=== PATIENT | female | born 1960 | race Caucasian/White ===

== ENCOUNTER → 2018-06-08 12:16 | Outpatient (CLI) | payer BC, SELFPAY ==
[2018-06-12 13:40] LABS: Z- Score (Female) -0.3 SD (-2.0 - +2.0)
== END ==
PROVIDERS: Family Provider Family Medicine; PCP Family Medicine; Visit Provider Nurse Practitioner Family
DX: N95.1 Menopausal and female climacteric states (principal)
CPT/HCPCS: 36415; 84305

== ENCOUNTER → 2018-10-25 15:15 | Outpatient (REF) | payer BC, SELFPAY ==
[2018-10-25 15:45] LABS: Influenza A and B by PCR Rapid Negative (Negative)
== END ==
LOC: LAB 15:15
PROVIDERS: Visit Provider Nurse Practitioner Family
DX: R05 Cough (principal); R50.9 Fever, unspecified
CPT/HCPCS: 87400

== ENCOUNTER → 2018-12-11 15:45 | Outpatient (REF) | payer BC, SELFPAY ==
[2018-12-11 16:16] LABS: Influenza A and B by PCR Rapid Negative (Negative)
== END ==
LOC: LAB 15:45
PROVIDERS: Visit Provider Family Medicine
DX: R50.9 Fever, unspecified (principal)
CPT/HCPCS: 87400

== ENCOUNTER 2019-02-25 11:46 | Emergency (ER) | payer OTHER, SELFPAY ==
[2019-02-25 11:50] VITALS: BP 161/93; PULSE 66; RESP 18; TEMP 36.7; O2SAT 100; BMI 23.0
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
[2019-02-25 13:09] VITALS: BP 152/82; PULSE 66; RESP 16; O2SAT 100
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
== END 2019-02-25 13:40 | disposition home or self-care (01) ==
PROVIDERS: Emergency Provider Emergency Medicine; PCP Family Medicine
DX: S16.1XXA Strain of muscle, fascia and tendon at neck level, initial encounter (principal); G44.209 Tension-type headache, unspecified, not intractable; V43.52XA Car driver injured in collision with other type car in traffic accident, initial encounter
CPT/HCPCS: 99283

== ENCOUNTER → 2019-04-27 09:13 | Outpatient (CLI) | payer BC, SELFPAY ==
--- NOTE | 2019-04-27 | DI.MRI.S_ITS ---
PROCEDURE: MR HEAD/BRAIN WO/W CON INDICATIONS: HEADACHE TECHNIQUE: Noncontrast axial T1 spin echo, axial T2 fast spin echo, sagittal and axial FLAIR, coronal T2 fast spin echo, axial gradient echo, axial diffusion and ADC through the brain. After the administration of contrast, axial and coronal T1 spin echo with fat saturation through the brain. COMPARISON: [facility], MR, BRAIN (PITUITARY) W&WO CONTRAS, 12/24/2011, 8:41. [facility], MR, BRAIN WITHOUT CONTRAST, 12/08/2011, 10:51. [facility], CT, HEAD WITHOUT CONTRAST, 03/18/2013, 11:02. FINDINGS: Image quality: Excellent. CSF spaces: Basal cisterns are patent. No extra-axial fluid collections. Ventricles are normal in size and shape. Brain: No midline shift. No intracranial bleeds or masses. No abnormal intracranial enhancement. There is cerebral volume loss for age. There is periventricular white matter chronic small vessel ischemic change. The brainstem appears normal. Diffusion-weighted images demonstrate no acute ischemic insults. No chronic ischemic insults. Normal intravascular flow voids are present. Skull and face: Calvarial marrow is normal in signal. Orbits appear normal. Sinuses: Sinuses and mastoids appear clear. IMPRESSION: Unremarkable intracranial study, without an imaging explanation found for the patient's presenting history of headache. No findings of acute or subacute infarction can be seen. Dictated by: Denton Orozco M.D. on 04/27/2019 at 9:04 Approved by: Denton Orozco M.D. on 04/27/2019 at 9:06
== END ==
PROVIDERS: PCP Family Medicine; Visit Provider Family Medicine
DX: R51 Headache (principal)
CPT/HCPCS: 70553

== ENCOUNTER → 2019-07-20 06:58 | Outpatient (CLI) | payer BC, SELFPAY ==
--- NOTE | 2019-07-20 | DI.US.S_ITS ---
PROCEDURE: US ABDOMEN COMPLETE INDICATIONS: RIGHT UPPER QUADRANT PAIN TECHNIQUE: Real-time scanning was performed of the abdominal and retroperitoneal organs, with image documentation. COMPARISON: [facility], CT, CHEST/ABD/PEL WITH CONTRAST, 03/29/2015, 11:29. FINDINGS: Liver: Liver is normal in size and homogeneous in echotexture. Gallbladder: No gallstones identified. Normal gallbladder wall. No pericholecystic fluid. Negative sonographic Sheridan sign. Biliary ducts: Intrahepatic bile ducts are non-dilated. Extrahepatic bile duct caliber measures 3.3 mm. Normal is 6-7 mm or less in diameter, or 10 mm or less post-cholecystectomy. Pancreas: Visualized portions of the pancreas are sonographically normal. Spleen: Spleen is normal in size and homogeneous in echotexture. Kidneys: Kidneys are normal in size and echotexture. Right kidney measures 10.4 cm long; left kidney measures 11.1 cm long. No hydronephrosis or nephrolithiasis. No solid masses. Aorta: Visualized aorta is normal in caliber at less than 3 cm. Iliacs: Proximal common iliac arteries are normal in caliber at less than 2.5 cm. IVC: Intrahepatic inferior vena cava is patent. Miscellaneous: No free abdominal fluid. IMPRESSION: No source for right upper quadrant pain identified. Dictated by: Cosme DOBBINS Interpreted: Carlie Salcido MD on 07/20/2019 at 10:57 Approved by: Carlie Salcido M.D. on 07/20/2019 at 14:56
== END ==
PROVIDERS: PCP Family Medicine; Visit Provider Family Medicine
DX: R10.11 Right upper quadrant pain (principal); R11.0 Nausea
CPT/HCPCS: 76700

== ENCOUNTER → 2019-07-30 13:06 | Outpatient (CLI) | payer BC, SELFPAY ==
--- NOTE | 2019-07-30 | DI.NM.S_ITS ---
PROCEDURE: NM HIDA WITH CCK PHARMACEUTICAL: 5.2 mCi Tc-99m mebrofenin IV; 1.2 mcg CCK IV. INDICATIONS: Nausea TECHNIQUE: Following intravenous administration of Tc-99m mebrofenin, sequential anterior abdominal images were obtained. To evaluate the contractile response of the gallbladder in response to Cholecystokinin (CCK), sincalide (0.02 ?g/kg) was administered by slow intravenous infusion approximately 60 minutes after the administration of the radiopharmaceutical. Sequential imaging was continued for 30 minutes after the start of CCK infusion. Gallbladder ejection fraction was calculated. COMPARISON: None. FINDINGS: Biliary scan: There is normal tracer uptake and excretion by the liver. There is normal visualization of the intrahepatic ducts, common bile duct, and gallbladder. There is normal tracer transit into the duodenum. CCK stimulation: There is normal contractile response of the gallbladder to CCK infusion. The calculated gallbladder ejection fraction is 86%; normal values are above 35%. It has been shown that any patient abdominal pain after CCK administration is related to the rate of CCK injection, rather than to any underlying gallbladder disease (Clinical Nuclear Medicine 2012; 37: 63-70. Journal of Nuclear Medicine 2014; 55: 1-9). IMPRESSION: 1. Normal filling of gallbladder. No evidence for acute cholecystitis. 2. Normal contractile response of gallbladder to CCK stimulation. Dictated by: Luis Hatch M.D. on 07/30/2019 at 16:20 Approved by: Luis Hatch M.D. on 07/30/2019 at 16:21
== END ==
PROVIDERS: PCP Family Medicine; Visit Provider Family Medicine
DX: R11.0 Nausea (principal); R10.11 Right upper quadrant pain
CPT/HCPCS: 78227; A9537; J2805

== ENCOUNTER → 2020-02-19 15:48 | Outpatient (CLI) | payer BC, SELFPAY ==
[2020-02-19 17:38] LABS: Thyroid Stimulating Hormone 0.211 uIU/mL (0.47-4.68)
== END ==
PROVIDERS: PCP Family Medicine; Referring Provider Family Medicine; Visit Provider Family Medicine
DX: E03.9 Hypothyroidism, unspecified (principal)
CPT/HCPCS: 36415; 84443

== ENCOUNTER → 2020-04-25 16:10 | Outpatient (CLI) | payer BC, SELFPAY ==
[2020-04-26 15:36] LABS: COVID19 Sendout Not Detected (Not Detected)
== END ==
PROVIDERS: PCP Family Medicine; Visit Provider Physician Assistant
DX: Z11.59 Encounter for screening for other viral diseases (principal); J02.9 Acute pharyngitis, unspecified
CPT/HCPCS: 87070; 87635

== ENCOUNTER → 2020-07-07 10:20 | Outpatient (CLI) | payer BC, SELFPAY ==
[2020-07-07 11:04] LABS: COVID19 -Nasal RAPID Negative (Negative)
== END ==
PROVIDERS: PCP Family Medicine; Visit Provider Physician Assistant
DX: Z11.59 Encounter for screening for other viral diseases (principal)
CPT/HCPCS: 87635

== ENCOUNTER → 2020-07-26 14:46 | Outpatient (CLI) | payer BC, SELFPAY ==
[2020-07-26 16:24] LABS: COVID19 -Nasal RAPID Negative (Negative)
== END ==
PROVIDERS: PCP Family Medicine; Visit Provider Nurse Practitioner
DX: Z11.59 Encounter for screening for other viral diseases (principal)
CPT/HCPCS: 87635

== ENCOUNTER 2020-07-28 14:00 | Day surgery (SDC) | payer BC, SELFPAY ==
--- NOTE | 2020-07-28 | PATH_ITS ---
[facility] Accession Number: [id number] . 01 Material submitted: . sigmoid colon - SIGMOID POLYP 2MM . 02 Diagnosis: Sigmoid Polyp 2 mm: Fragments of hyperplastic polyp. MRV 07/31/2020 1129 Local . 02 Electronically signed: . Floridalma Zhao MD, Pathologist NPI- [id number] . 01 Gross description: . SIGMOID POLYP 2MM: Received in formalin are minute fragment(s) of evans, soft tissue measuring 0.1 x 0.1 x 0.1 cm in aggregate submitted entirely in 1 cassette(s) /QBJ 07/29/2020 0742 Local . 02 Pathologist provided ICD-10: Z12.11, K63.5 . 02 CPT . [id number] Performed at: 01 [facility] [address] [facility], [place], [place] [id number] MD Adam Ledezma MD Phone: [phone] Performed at: [address] [facility] [address] [place], [place] [id number] MD Colleen Barnett MD Phone: [phone]
--- NOTE | 2020-07-28 12:22 | P.HP_ITS ---
History of Present Illness History of Present Illness Date Patient Seen: 07/28/20 Chief complaint: SDC Narrative: 60 Years Old Female seen today for consideration of a screening colonoscopy. Previous colonoscopy 2008, normal. There have been no lower GI symptoms suggesting disease such as change in bowel habits, bleeding, abdominal pain or anemia. There's been no family history of colon cancer or colon polyps. Overall health issues have been stable, including no major cardiac events for at least 6 weeks. Past Medical History: asthma Dilating esophagus, perforated. Was transported to for 10 days. 2013 ACL & MCL tear 2016 Subungual hematoma Abdominal pain, right upper quadrant HYPERLIPIDEMIA ADD HYPOTHYROIDISM Sebaceous cyst, breast, left HEADACHE Osteopenia Postmenopausal hormone replacement therapy INSOMNIA Pyloric stenosis Past Surgical History: Breast augmentation Tonsillectomy and Adenoidectomy appendectomy 03/29/15 Colonoscopy, 2008 Pyloric stenosis Family History: Father: Heart Disease, [place] age 50, Hypertension, Hyperlipidemia Mother: Heart Disease had a bad valve , Hyperlipidemia, Osteoporosis Siblings: four sibling. both boys with lipid problems. Sister had benign brain tumor age 66. Caitlin B2AD Social History: Marital Status: - Moses (1960) - [employer] Defense Manager Children: G2, P2; 1995, 1997 Occupation: At home Education: 1 year college 2-3 drinks on the weekend Patient History Medical History (Updated 07/07/20 @ 10:19 by Aurora Hicks PA-C) Healthy adult URI (upper respiratory infection) Surgical History No pertinent past surgical history Family & Social History Tobacco & Substance use: Smoking Status Never smoker alcohol intake frequency 0-2 drinks per day Substance Use Type does not use Meds Home Medications and Allergies Home Medications Medication Instructions Recorded Confirmed Type levothyroxine [Synthroid] 50 mcg PO QDAY #0 03/18/13 07/28/20 History atorvastatin 10 mg tablet 10 mg PO DAILY 04/25/20 07/28/20 History Allergies Allergy/AdvReac Type Severity Reaction Status Date / Time amoxicillin [AMOXICILLIN] Allergy Intermediate RASH Verified 07/28/20 14:20 erythromycin base Allergy Intermediate Rash Verified 07/28/20 14:20 Review of Systems Review of Systems ROS: Yes All systems reviewed with the patient and are negative except as otherwise documented Exam Narrative Exam Narrative: GENERAL: Alert and oriented, appearing stated age and in no acute distress. HEENT: Head normocephalic/atraumatic. Pupils equal, round, and reactive to light and accomodation. Extraocular muscles intact. Tympanic membranes clear. Nasal mucosa moist, septum midline. Oral mucosa moist, no lesions. Neck soft and supple, no lymphadenopathy. LUNGS: Clear to ausculation bilaterally, no wheezes, rhonchi or rales. CV: Normal S1 and S2 with regular rate and rhythm, no audible murmurs, rubs or gallops. ABDOMEN: Soft, non-tender, non-distended, no organomegaly. Positive bowel sounds. EXTREMITIES: No clubbing, cyanosis, or edema. NEURO: Cranial nerves II through XII grossly intact, no focal deficits. PSYCH: Alert and oriented x 3. SKIN: No concerning lesions. Assessment & Plan Assessment & Plan narrative: 1. Screening for colon cancer Plan for colonoscopy. The nature and character of the procedure as well as anticipated results were discussed. The possibility of not completing the procedure was also discussed. Possible complications including aspiration pneumonia, bleeding, perforation and reaction to medications either for sedation or preparation and missed lesions were discussed. Questions were answered and proceeding to the colonoscopy was elected. Informed consent signed. I sincerely appreciate the referral allowing me to participate in this patient's care. Please contact me with any questions or concerns.
--- NOTE | 2020-07-28 12:24 | PM.OP.ENDO ---
Operative Date/Time/Diagnoses Date of procedure: 07/28/20 Procedure Notes SCOAP/Timeout: 3:37 p.m. Procedure in detail: ENDOSCOPIST: Marietta Buckley MD Sedation RN: Shauna Dumont RN Sedation start time: 3:38 p.m. Sedation end time: 4:03 p.m. PROCEDURE: Colonoscopy with biopsy INDICATIONS: 1. Screening for colon cancer MEDICATION: Levsin 0.125 mg sublingual, incremental doses of Versed and fentanyl until appropriate level sedation achieved. ASA CLASS: 2 CECAL WITHDRAWAL TIME: 11 minutes COMPLICATIONS: None. EXTENT OF PROCEDURE: Cecum. QUALITY OF PREP: Good with portions of liquid stool. PROCEDURE: Prior to insertion of the colonoscope, a digital rectal examination was accomplished with circumferential palpation of the distal rectal mucosa without significant findings being noted. The high-definition pediatric colonoscope was passed into the rectum in the usual fashion and advanced over to the cecum without difficulty. The ileocecal valve, appendiceal stoma, and medial wall all could be inspected and no abnormalities were seen. ASCENDING COLON: As the colonoscope was withdrawn, care was taken to expose and inspect the haustral folds and no abnormalities were seen. HEPATIC FLEXURE: Normal, no polyps, diverticula or other abnormalities. TRANSVERSE COLON: Normal, no polyps, diverticula or other abnormalities. DESCENDING COLON: Normal, no polyps, diverticula or other abnormalities. SIGMOID COLON: 2 mm polyp removed with cold biopsy forceps. Otherwise, normal, no diverticula or other abnormalities. RECTUM: Normal. J maneuver was produced. There was no significant perianal disease. The J maneuver was broken. The remainder of the rectum was inspected and there was no external hemorrhoid disease. The scope was withdrawn. IMPRESSION: 1. Sigmoid polyp x 1, 2 mm, removed with cold biopsy forceps PLAN: 1. Follow-up in clinic status post pathology results. The possibility of a missed lesion including a malignancy has been discussed with the patient previously. Potential alarm symptoms have been discussed and should be reported immediately.
[2020-07-28] MEDS: LACTATED RINGERS 1,000 ML 200 ML IV (14:23)
[2020-07-28] MEDS: HYOSCYAMINE 0.125 MG TABLET PO (14:23)
[2020-07-28 14:29] VITALS: BP 143/80; PULSE 71; RESP 16; TEMP 36.9; O2SAT 99; BMI 23.9
[2020-07-28] MEDS: MIDAZOLAM 5 MG/5 ML VIAL IV (15:47)
[2020-07-28] MEDS: fentaNYL 250 MCG/5 ML INJ IV (15:47)
[2020-07-28 16:08] VITALS: BP 114/66; PULSE 81; RESP 10; TEMP 36.3; O2SAT 97
[2020-07-28 16:13] VITALS: BP 115/72; PULSE 77; RESP 13; O2SAT 97
[2020-07-28 16:19] VITALS: BP 118/69; PULSE 78; RESP 14; O2SAT 97
[2020-07-28 16:23] VITALS: BP 111/73; PULSE 75; RESP 12; O2SAT 97
[2020-07-28 16:34] VITALS: BP 125/86; PULSE 66; RESP 12; O2SAT 97
== END 2020-07-28 17:00 | disposition home or self-care (01) ==
PROVIDERS: PCP Family Medicine; Referring Provider Student in an Organized Health Care Education/Training Program; Visit Provider Student in an Organized Health Care Education/Training Program
PROC: 0DJD8ZZ Inspection of Lower Intestinal Tract, Via Natural or Artificial Opening Endoscopic (ICD-10-PCS; CPT 45378; principal; 2020-07-28 15:15)
DX: Z12.11 Encounter for screening for malignant neoplasm of colon (principal); J45.909 Unspecified asthma, uncomplicated; E78.5 Hyperlipidemia, unspecified; E03.9 Hypothyroidism, unspecified; K63.5 Polyp of colon
CPT/HCPCS: 45380; J2250; J3010

== ENCOUNTER → 2020-08-11 12:20 | Outpatient (CLI) | payer BC, SELFPAY ==
--- NOTE | 2020-08-11 | DI.RAD.S_ITS ---
PROCEDURE: XR CHEST 2V INDICATIONS: COUGH TECHNIQUE: 2 views of the chest were acquired. COMPARISON: [facility], CHEST 2 VIEW, 12/14/2016, 15:59. [facility], CHEST 2 VIEW, 02/19/2013, 10:36. FINDINGS: Surgical changes and devices: None. Lungs and pleura: Lungs are clear. No pleural effusions or pneumothorax. Mediastinum: Mediastinal contours are normal. Heart size is normal. Bones and chest wall: No suspicious bony abnormalities. Soft tissues appear unremarkable. IMPRESSION: Normal for age, source of current cough symptoms is not seen. Dictated by: Jonathan Monet M.D. on 08/11/2020 at 14:24 Approved by: Jonathan Monet M.D. on 08/11/2020 at 14:24
== END ==
PROVIDERS: PCP Family Medicine; Referring Provider Family Medicine; Visit Provider Family Medicine
DX: R05 Cough (principal)
CPT/HCPCS: 71046

== ENCOUNTER → 2021-01-01 10:23 | Outpatient (CLI) | payer BC, SELFPAY ==
--- NOTE | 2021-01-01 10:25 | DI.RAD.S_ITS ---
PROCEDURE: XR CHEST 2V INDICATIONS: COUGH TECHNIQUE: 2 views of the chest were acquired. COMPARISON: [facility], CR, XR CHEST 2V, 08/11/2020, 13:35. FINDINGS: Surgical changes and devices: None. Lungs and pleura: Scattered subsegmental scarring and/or atelectasis. No acute consolidation. No pleural effusions or pneumothorax. Mediastinum: Mediastinal contours are normal. Heart size is normal. Bones and chest wall: No suspicious bony abnormalities. Soft tissues appear unremarkable. IMPRESSION: No acute disease. Dictated by: Haider Fitzgerald M.D. on 01/01/2021 at 13:04 Approved by: Haider Fitzgerald M.D. on 01/01/2021 at 13:08
== END ==
PROVIDERS: PCP Family Medicine; Referring Provider Family Medicine; Visit Provider Family Medicine
DX: R05 Cough (principal)
CPT/HCPCS: 71046

== ENCOUNTER 2022-05-21 10:11 | Emergency (ER) | payer OTHER, SELFPAY ==
[2022-05-21] VITALS (14 sets, daily range): BP systolic 117–170; BP diastolic 57–83; PULSE 66–83; RESP 18–24; TEMP 36.8; O2SAT 96–100; BMI 23.0
--- NOTE | 2022-05-21 10:25 | DI.RAD.S_ITS ---
PROCEDURE: XR CHEST 1V INDICATIONS: chest pain TECHNIQUE: One view of the chest was acquired. COMPARISON: [facility], CR, XR CHEST 2V, 01/01/2021, 10:38. FINDINGS: Surgical changes and devices: None. Lungs and pleura: Lungs are clear. No pleural effusions or pneumothorax. Mediastinum: Mediastinal contours appear normal. Heart size is normal. Bones and chest wall: No suspicious bony lesions. Overlying soft tissues appear unremarkable. IMPRESSION: No acute cardiopulmonary pathology. Dictated by: Rony Duque M.D. on 05/21/2022 at 11:05 Approved by: Rony Duque M.D. on 05/21/2022 at 11:05
[2022-05-21 10:44] LABS: Add Manual Diff / Slide Review NO; Basophils Absolute Auto 0 /uL (0-100); Basophils Percent Auto 0.3 % (0-2); Eosinophils Absolute Auto 100 /uL (0-450); Eosinophils Percent Auto 1.7 % (2-4); Hematocrit 40.2 % (36-46); Hemoglobin 13.5 g/dL (12.0-16.0); Lymphocytes Absolute Auto 1200 /uL (1100-4500); Lymphocytes Percent Auto 15.6 % (25-40); Mean Corpuscular HGB Conc 33.7 % (30-36); Mean Corpuscular Hemoglobin 31.6 PG (26-34); Mean Corpuscular Volume 93.7 fL (80-100); Monocytes Absolute Auto 700 /uL (0-900); Monocytes Percent Auto 8.7 % (3-14); Neutrophils Absolute Auto 5600 /uL (1500-7000); Neutrophils Percent Auto 73.7 % (50-75); Platelet Count 140 X10^3/uL (150-400); Red Blood Cell Count 4.29 X10^6/uL (4.0-5.2); Red Cell Distribution Width 12.3 % (11.6-14.8); White Blood Cell Count 7.6 X10^3/uL (4.5-11.0)
--- NOTE | 2022-05-21 10:51 | ED.CHESTPAIN ---
HPI - Chest Pain General Chief Complaint: Chest Pain Stated Complaint: Chest pain, shoulder pain, SOB, headache pain Time Seen by Provider: 05/21/22 10:40 Source: patient Mode of arrival: Ambulatory Limitations: no limitations History of Present Illness HPI narrative: 62-year-old female here for evaluation of epigastric abdominal pain, shortness of breath with deep inspirations because of the pain and left shoulder discomfort. States the symptoms been going on for the past 24-36 hours. She has had a hiatal hernia and also esophageal rings in the past. Has had an esophageal rupture after an endoscope many years ago. She also has a history of reflux disease. Approximately 1 week ago she started to take her famotidine again because she was having some reflux issues. Those symptoms are now gone. She denies chest discomfort. She states that the pain in her epigastrium is somewhat worse with palpation. She is also having diarrhea. No urinary symptoms. No skin changes. Related Data Home Medications Medication Instructions Recorded Confirmed levothyroxine 50 mcg tablet 50 mcg PO QDAY ##0 03/18/13 07/28/20 (Synthroid) atorvastatin 10 mg tablet (Lipitor) 10 mg PO DAILY 04/25/20 07/28/20 Previous Rx's Medication Instructions Recorded sucralfate 100 mg/mL oral 10 ml PO QACHS #420 mL 05/21/22 suspension (Carafate) Allergies Allergy/AdvReac Type Severity Reaction Status Date / Time amoxicillin [AMOXICILLIN] Allergy Intermediate RASH Verified 07/28/20 14:20 erythromycin base Allergy Intermediate Rash Verified 07/28/20 14:20 Review of Systems Review of Systems ROS Unobtainable: All systems reviewed & are unremarkable except as noted in HPI and below Patient History Medical History Healthy adult URI (upper respiratory infection) Surgical History No pertinent past surgical history Social History household members: spouse Smoking Status: Never smoker alcohol intake: current Smoking Status: Never smoker alcohol intake frequency: a few times a month Alcohol type: wine Substance Use Type: does not use Exam Initial Vital Signs Initial Vital Signs: Vital Signs Temperature 98.3 F 05/21/22 10:20 Pulse Rate 73 05/21/22 10:20 Respiratory Rate 18 05/21/22 10:20 Blood Pressure 135/76 05/21/22 10:20 Pulse Oximetry 100 05/21/22 10:20 Oxygen Delivery Method 05/21/22 10:20 Const General: cooperative, comfortable and well developed Chest Other: Mild discomfort in the epigastric region and left upper quadrant. Resp Effort & Inspection: normal respiratory effort Auscultation: clear to auscultation bilaterally Cardio Rate: regular rate Rhythm: regular rhythm GI Other: Epigastric abdominal tenderness, no Sheridan's sign, no lower abdominal tenderness. Back/Spine/Pelvis Back: normal to inspection and No CVA tenderness Skin General: no rashes or lesions noted Neuro General: patient alert, patient awake and moves all extremities Extrem General: normal to inspection and capillary refill normal Psych Appearance: grossly normal and well kempt Course Orders Ordered: ED Orders 05/21/22 10:25 XR chest 1V Stat EKG-12 Lead Stat 05/21/22 10:36 Complete Blood Count AUTO DIFF Stat Comprehensive Metabolic Panel Stat D Dimer Stat Lipase Stat Magnesium Stat Troponin & CK Cardiac Panel Stat 05/21/22 12:14 CT abdomen pelvis w con Stat 05/21/22 12:40 Troponin I Stat Discontinued Medications Acetaminophen (Acetaminophen Susp 650 Mg/20.3 Ml Udc) 650 mg PO NOW ONE Stop: 05/21/22 11:56 Last Admin: 05/21/22 11:59 Dose: 650 mg Documented By: AMARJIT Ward Hydrox/Mg Hydrox/Simethicone 20 ml/ Lidocaine HCl 15 ml 0 ml PO NOW ONE Stop: 05/21/22 13:45 Last Admin: 05/21/22 14:07 Dose: 35 ml Documented By: NANCY Vital Signs Vital signs: Vital Signs - 8 hr 05/21/22 10:20 05/21/22 10:42 05/21/22 11:00 Temperature 98.3 F Pulse Rate 73 83 71 Respiratory Rate 18 Blood Pressure 135/76 Pulse Oximetry 100 97 97 Oxygen Delivery Method Room Air 05/21/22 11:30 05/21/22 11:39 05/21/22 11:39 Temperature Pulse Rate 68 83 Respiratory Rate 24 22 Blood Pressure 134/75 Pulse Oximetry 97 98 Oxygen Delivery Method 05/21/22 12:00 05/21/22 12:30 05/21/22 12:30 Temperature Pulse Rate 80 66 Respiratory Rate 20 Blood Pressure 129/67 Pulse Oximetry 97 97 Oxygen Delivery Method Room Air Room Air 05/21/22 13:02 05/21/22 13:03 05/21/22 13:03 Temperature Pulse Rate 81 78 Respiratory Rate 23 Blood Pressure 170/83 H Pulse Oximetry 96 96 Oxygen Delivery Method Room Air Room Air 05/21/22 13:30 05/21/22 13:31 05/21/22 13:31 Temperature Pulse Rate 72 73 Respiratory Rate Blood Pressure 142/78 H Pulse Oximetry 98 98 Oxygen Delivery Method Room Air Room Air 05/21/22 14:00 05/21/22 14:00 Temperature Pulse Rate 70 Respiratory Rate Blood Pressure 138/63 Pulse Oximetry 98 Oxygen Delivery Method Room Air MDM - Chest Pain Lab Data Attestation: I reviewed the patient's lab results. Result diagrams: 05/21/22 10:36 05/21/22 10:36 Labs: Lab Results 05/21/22 05/21/22 05/21/22 Range/Units 10:36 10:36 10:36 WBC 7.6 (4.5-11.0) X10^3/uL RBC 4.29 (4.0-5.2) X10^6/uL Hgb 13.5 (12.0-16.0) g/dL Hct 40.2 (36-46) % MCV 93.7 (80-100) fL MCH 31.6 (26-34) PG MCHC 33.7 (30-36) % RDW 12.3 (11.6-14.8) % Plt Count 140 L (150-400) X10^3/uL Neut % (Auto) 73.7 (50-75) % Lymph % (Auto) 15.6 L (25-40) % Rogers % (Auto) 8.7 (3-14) % Eos % (Auto) 1.7 L (2-4) % Baso % (Auto) 0.3 (0-2) % Neut # (Auto) 5600 (5252-5900) /uL Lymph # (Auto) 1200 (4077-0891) /uL Rogers # (Auto) 700 (0-900) /uL Eos # (Auto) 100 (0-450) /uL Baso # (Auto) 0 (0-100) /uL D-Dimer 321 (<500) ng/ml Sodium 139 (137-145) mmol/L Potassium 4.0 (3.4-5.1) mmol/L Chloride 103 (98-107) mmol/L Carbon Dioxide 28 (22-32) mmol/L BUN 14 (7-17) mg/dL Creatinine 0.63 (0.52-1.04) mg/dL Estimated GFR > 60 (>60) mL/min BUN/Creatinine Ratio 22.2 H (6-22) Glucose 93 (80-110) mg/dL Calcium 8.1 L (8.4-10.2) mg/dL Magnesium 2.1 (1.6-2.3) mg/dL Total Bilirubin 0.5 (0.2-1.3) mg/dL AST 39 H (14-36) IU/L ALT 34 (<35) IU/L Alkaline Phosphatase 78 (38-126) U/L Total Creatine Kinase 46 (30-135) U/L CK-MB (CK-2) TNP CK-MB (CK-2) Rel Index TNP Troponin I < 0.012 (0.01-0.034) ng/mL Total Protein 7.5 (6.3-8.2) g/dL Albumin 4.3 (3.5-5.0) g/dL Globulin 3.2 (1.7-4.1) g/dL Albumin/Globulin Ratio 1.3 (1.0-2.8) Lipase 52 (23-300) U/L 05/21/22 Range/Units 12:40 WBC (4.5-11.0) X10^3/uL RBC (4.0-5.2) X10^6/uL Hgb (12.0-16.0) g/dL Hct (36-46) % MCV (80-100) fL MCH (26-34) PG MCHC (30-36) % RDW (11.6-14.8) % Plt Count (150-400) X10^3/uL Neut % (Auto) (50-75) % Lymph % (Auto) (25-40) % Rogers % (Auto) (3-14) % Eos % (Auto) (2-4) % Baso % (Auto) (0-2) % Neut # (Auto) (3340-0880) /uL Lymph # (Auto) (0305-4775) /uL Rogers # (Auto) (0-900) /uL Eos # (Auto) (0-450) /uL Baso # (Auto) (0-100) /uL D-Dimer (<500) ng/ml Sodium (137-145) mmol/L Potassium (3.4-5.1) mmol/L Chloride (98-107) mmol/L Carbon Dioxide (22-32) mmol/L BUN (7-17) mg/dL Creatinine (0.52-1.04) mg/dL Estimated GFR (>60) mL/min BUN/Creatinine Ratio (6-22) Glucose (80-110) mg/dL Calcium (8.4-10.2) mg/dL Magnesium (1.6-2.3) mg/dL Total Bilirubin (0.2-1.3) mg/dL AST (14-36) IU/L ALT (<35) IU/L Alkaline Phosphatase (38-126) U/L Total Creatine Kinase (30-135) U/L CK-MB (CK-2) CK-MB (CK-2) Rel Index Troponin I < 0.012 (0.01-0.034) ng/mL Total Protein (6.3-8.2) g/dL Albumin (3.5-5.0) g/dL Globulin (1.7-4.1) g/dL Albumin/Globulin Ratio (1.0-2.8) Lipase (23-300) U/L Urine Dip Bedside Urine Glucose Negative Bedside Urine Bilirubin - Negative Bedside Urine Ketone - Negative Urine Specific [place] 1.005 Bedside Urine Occult Blood - Negative Bedside Urine pH 8 Bedside Urine Protein - Negative Bedside Urine Nitrite - Negative Bedside Urine Leukocytes - Negative Esterase Imaging Data Chest x-ray: Radiologist's Impression: [address] [address] XRay Report Signed Patient: Judy Tierney MR#: [id number] : 1960 Acct:[id number] Age/Sex: 62 / F Date of Service: 05/21/22 Loc: ED Accession Number: [id number] ?? Procedure: XR chest 1V Ordering Provider: Vimal Mckeon D.O. PROCEDURE:? XR CHEST 1V ? INDICATIONS:? chest pain ? TECHNIQUE:? One view of the chest was acquired.? ? COMPARISON:? [facility], CR, XR CHEST 2V, 01/01/2021, 10:38. ? FINDINGS:? ? Surgical changes and devices:? None.? ? Lungs and pleura:? Lungs are clear.? No pleural effusions or pneumothorax.? ? Mediastinum:? Mediastinal contours appear normal.? Heart size is normal.? ? Bones and chest wall:? No suspicious bony lesions.? Overlying soft tissues appear unremarkable.? ? IMPRESSION:? No acute cardiopulmonary pathology. ? ? Dictated by: Rony Duque M.D. on 05/21/2022 at 11:05 ? ? Approved by: Rony Duque M.D. on 05/21/2022 at 11:05?? CT scan - abdomen/pelvis: Radiologist's Impression: [place] [address] CT Scan Report Signed Patient: Judy Tierney MR#: [id number] : 1960 Acct:[id number] Age/Sex: 62 / F Date of Service: 05/21/22 Loc: ED Accession Number: [id number] ?? Procedure: CT abdomen pelvis w con Ordering Provider: Vimal Mckeon D.O. PROCEDURE:? CT ABDOMEN PELVIS W CON ? INDICATIONS:? epigastric ABD pain history of esophageal stricture/pyloric ? TECHNIQUE:? After the administration of intravenous contrast, axial sections acquired from the lung bases to the pubic symphysis.? Coronal and sagittal reformats were performed.? For radiation dose reduction, the following was used:? automated exposure control, adjustment of mA and/or kV according to patient size.? ? COMPARISON:? CT, CHEST/ABD/PEL WITH CONTRAST, 03/29/2015, 11:29.? US, US ABDOMEN COMPLETE, 07/20/2019, 7:24. ? FINDINGS:? Image quality:? Excellent.? ? Lung bases:? Unremarkable except for posterior left lower lobe costophrenic sulcus mild consolidation in the setting of reduced inspiratory volume. Heart:? No significant findings. ? ABDOMEN: Liver:? Unremarkable.? ? Gallbladder:? Unremarkable.? ? Biliary ducts:? Unremarkable.? ? Pancreas:? Unremarkable.? ? Spleen:? Unremarkable.? ? Adrenal Glands:? Unremarkable.? ? Kidneys and Ureters:? Unremarkable.? ? ? Stomach and Bowel:? Stomach, small bowel loops, and colon are unremarkable.? Peritoneum:? No abnormal intraperitoneal fluid.? No free air.? ? Ventral Wall: ? No hernias.? Abdominal Nodes:? No retroperitoneal or mesenteric adenopathy by size criteria.? Vessels:? Aorta and inferior vena cava are normal in size.? ? PELVIS: Pelvic Organs:? Unremarkable.? ? Bladder:? Unremarkable.? ? Pelvic Nodes: No enlarged lymph nodes.? Miscellaneous: No hernias are seen. ? ? ? Bones:? Unremarkable.? IMPRESSION:? No source of current abdominal pain is found.? No abnormality identified.? Incidental note is made of what appears to be mild posterior left lower lobe atelectasis but it is conceivable that a slight degree of active inflammation could be superimposed in that area.? Please correlate clinically.? ? Dictated by: Jonathan Monet M.D. on 05/21/2022 at 13:17 ? ? Approved by: Jonathan Monet M.D. on 05/21/2022 at 13:20 ECG Data Attestation: I personally reviewed and interpreted this ECG as follows: Interpretation: Sinus rhythm Ventricular rate is 75 Occasional PACs Normal QRS Normal QTC Left axis deviation MDM Narrative Medical decision making narrative: EKG is unremarkable, troponins negative x2, CT scan of the abdomen is unremarkable. Chest x-ray is unremarkable. LFTs bilirubin lipase all negative. No indication of any infection. D-dimer is negative. I suspect that her left shoulder discomfort is referred pain from her epigastric region. She has had issues in the past with GI. Has had history of reflux disease and also hiatal hernia which I suspect is what is present today. Will discharge her home with Carafate. Will have her contact her GI provider for follow-up. She was given return precautions. She expressed understanding and agreement. Discharge Plan Departure Patient Disposition: Home Clinical Impression: Epigastric abdominal pain Instructions: DI for Abdominal Pain-Adult Activity Restrictions/Additional Instructions: I do recommend you continue to take all of your medications. Prescription for a medicine called Carafate/sucralfate was sent to [email or web address]. Please start taking it as directed like we discussed. Contact your primary doctor for a follow-up. Return to the emergency department for any new or worsening symptoms. Prescriptions: New sucralfate [Carafate] 100 mg/mL suspension 10 ml PO QACHS Qty: 420 0RF No Action atorvastatin [Lipitor] 10 mg tablet 10 mg PO DAILY levothyroxine [Synthroid] 50 MCG tablet 50 mcg PO QDAY Qty: 0 Referrals: Minh Leong MD [Primary Care Provider] -
[2022-05-21 10:55] LABS: Alanine Aminotransferase 34 IU/L (<35); Albumin 4.3 g/dL (3.5-5.0); Albumin Globulin Ratio 1.3 (1.0-2.8); Alkaline Phosphatase 78 U/L (38-126); Aspartate Aminotransferase 39 IU/L (14-36); BUN Creatinine Ratio 22.2 (6-22); Bilirubin Total 0.5 mg/dL (0.2-1.3); Blood Urea Nitrogen 14 mg/dL (7-17); Calcium 8.1 mg/dL (8.4-10.2); Carbon Dioxide 28 mmol/L (22-32); Chloride 103 mmol/L (98-107); Creatine Kinase 46 U/L (30-135); Estimated Glomerular Filt Rate > 60 mL/min (>60); Globulin 3.2 g/dL (1.7-4.1); Glucose 93 mg/dL (80-110); HEMOLYSIS 40 (0-50); Lipase 52 U/L (23-300); Magnesium 2.1 mg/dL (1.6-2.3); Sodium 139 mmol/L (137-145); Total Protein 7.5 g/dL (6.3-8.2)
[2022-05-21 11:07] LABS: Troponin I < 0.012 ng/mL (0.01-0.034)
[2022-05-21] MEDS: ACETAMINOPHEN SUSP 650 MG/20.3 ML UDC PO (11:59)
--- NOTE | 2022-05-21 12:14 | DI.CT.S_ITS ---
PROCEDURE: CT ABDOMEN PELVIS W CON INDICATIONS: epigastric ABD pain history of esophageal stricture/pyloric TECHNIQUE: After the administration of intravenous contrast, axial sections acquired from the lung bases to the pubic symphysis. Coronal and sagittal reformats were performed. For radiation dose reduction, the following was used: automated exposure control, adjustment of mA and/or kV according to patient size. COMPARISON: CT, CHEST/ABD/PEL WITH CONTRAST, 03/29/2015, 11:29. US, US ABDOMEN COMPLETE, 07/20/2019, 7:24. FINDINGS: Image quality: Excellent. Lung bases: Unremarkable except for posterior left lower lobe costophrenic sulcus mild consolidation in the setting of reduced inspiratory volume. Heart: No significant findings. ABDOMEN: Liver: Unremarkable. Gallbladder: Unremarkable. Biliary ducts: Unremarkable. Pancreas: Unremarkable. Spleen: Unremarkable. Adrenal Glands: Unremarkable. Kidneys and Ureters: Unremarkable. Stomach and Bowel: Stomach, small bowel loops, and colon are unremarkable. Peritoneum: No abnormal intraperitoneal fluid. No free air. Ventral Wall: No hernias. Abdominal Nodes: No retroperitoneal or mesenteric adenopathy by size criteria. Vessels: Aorta and inferior vena cava are normal in size. PELVIS: Pelvic Organs: Unremarkable. Bladder: Unremarkable. Pelvic Nodes: No enlarged lymph nodes. Miscellaneous: No hernias are seen. Bones: Unremarkable. IMPRESSION: No source of current abdominal pain is found. No abnormality identified. Incidental note is made of what appears to be mild posterior left lower lobe atelectasis but it is conceivable that a slight degree of active inflammation could be superimposed in that area. Please correlate clinically. Dictated by: Jonathan Monet M.D. on 05/21/2022 at 13:17 Approved by: Jonathan Monet M.D. on 05/21/2022 at 13:20
[2022-05-21 13:12] LABS: Troponin I < 0.012 ng/mL (0.01-0.034)
[2022-05-21] MEDS: MAG HYDROX/ALUMINUM/SIMETH SUS 20 ML, LIDOCAINE VISCOUS 2% 15 ML PO (14:07)
[2022-05-21 14:12] LABS: D Dimer 321 ng/ml (<500)
== END 2022-05-21 14:38 | disposition home or self-care (01) ==
PROVIDERS: Emergency Provider Emergency Medicine; PCP Family Medicine
DX: R10.13 Epigastric pain (principal); R07.9 Chest pain, unspecified
CPT/HCPCS: 36415; 71045; 74177; 80053; 81003; 82550; 83690; 83735; 84484; 85025; 85379; 93005; 99284

== ENCOUNTER → 2022-06-02 12:14 | Outpatient (CLI) | payer OTHER, SELFPAY ==
[2022-06-02 13:59] LABS: Adenovirus F 40/41 Not Detected (Not Detect); Astrovirus Not Detected (Not Detect); Campylobacter Not Detected (Not Detect); Clostridium difficile toxin AB Not Detected (Not Detect); Cryptosporidium Not Detected (Not Detect); Cyclospora cayetanensis Not Detected (Not Detect); Entamoeba histolytica Not Detected (Not Detect); Enteroaggregative E.coli Not Detected (Not Detect); Enteropathogenic E.coli Not Detected (Not Detect); Enterotoxigenic E.coli It/st Not Detected (Not Detect); Giardia lamblia Not Detected (Not Detect); Norovirus GI/GII Not Detected (Not Detect); Plesiomonsa shigelloides Not Detected (Not Detect); Rotavirus A Not Detected (Not Detect); Salmonella Not Detected (Not Detect); Sapovirus Not Detected (Not Detect); Shiga-like toxin-prod E.coli Not Detected (Not Detect); Shigella/Enteroinvasive E.coli Not Detected (Not Detect); Vibrio Not Detected (Not Detect); Vibrio cholerae Not Detected (Not Detect); Yersinia enterocolitica Not Detected (Not Detect)
== END ==
PROVIDERS: PCP Family Medicine; Referring Provider Nurse Practitioner Adult Health; Visit Provider Nurse Practitioner Adult Health
DX: R19.7 Diarrhea, unspecified (principal)
CPT/HCPCS: 87507

== ENCOUNTER → 2023-05-04 11:34 | Outpatient (CLI) | payer OTHER, MEDICARE, SELFPAY ==
[2023-05-04 12:39] LABS: Add Manual Diff / Slide Review NO; Basophils Absolute Auto 0 /uL (0-100); Basophils Percent Auto 0.8 % (0-2); Eosinophils Absolute Auto 100 /uL (0-450); Eosinophils Percent Auto 3.5 % (2-4); Hematocrit 42.2 % (36-46); Hemoglobin 14.2 g/dL (12.0-16.0); Lymphocytes Absolute Auto 1500 /uL (1100-4500); Lymphocytes Percent Auto 34.1 % (25-40); Mean Corpuscular HGB Conc 33.6 % (30-36); Mean Corpuscular Hemoglobin 31.5 PG (26-34); Mean Corpuscular Volume 93.6 fL (80-100); Monocytes Absolute Auto 300 /uL (0-900); Monocytes Percent Auto 7.3 % (3-14); Neutrophils Absolute Auto 2300 /uL (1500-7000); Neutrophils Percent Auto 54.3 % (50-75); Platelet Count 174 X10^3/uL (150-400); Red Blood Cell Count 4.51 X10^6/uL (4.0-5.2); White Blood Cell Count 4.3 X10^3/uL (4.5-11.0)
[2023-05-04 13:20] LABS: Alanine Aminotransferase 34 IU/L (<35); Albumin 4.3 g/dL (3.5-5.0); Albumin Globulin Ratio 1.7 (1.0-2.8); Alkaline Phosphatase 64 U/L (38-126); Aspartate Aminotransferase 33 IU/L (14-36); BUN Creatinine Ratio 17.9 (6-22); Bilirubin Total 0.4 mg/dL (0.2-1.3); Blood Urea Nitrogen 12 mg/dL (7-17); Calcium 9.4 mg/dL (8.4-10.2); Carbon Dioxide 25 mmol/L (22-32); Chloride 103 mmol/L (98-107); Cholesterol 193 mg/dL (140-199); Estimated Glomerular Filt Rate > 60 mL/min (>60); Globulin 2.6 g/dL (1.7-4.1); Glucose 97 mg/dL (80-110); HDL Cholesterol 57 mg/dL (40-60); HEMOLYSIS < 15 (0-50); LDL Cholesterol Calculated 102 mg/dL (<100); Potassium 4.4 mmol/L (3.4-5.1); Sodium 136 mmol/L (137-145); Total Protein 6.9 g/dL (6.3-8.2); Triglycerides 169 mg/dL (35-150)
[2023-05-04 13:47] LABS: Free T3, Triiodothyronine Free 3.85 pg/mL (2.77-5.27); Thyroid Stimulating Hormone 1.49 uIU/mL (0.47-4.68)
[2023-05-06 00:07] LABS: Thyroid Peroxidase Antibodies 10 IU/mL (0-34)
[2023-05-07 09:36] LABS: Lipoprotein (a) 15.7 nmol/L (<75.0)
== END ==
PROVIDERS: PCP Family Medicine; Referring Provider Naturopath; Visit Provider Naturopath
DX: Z00.00 Encounter for general adult medical examination without abnormal findings (principal); E03.9 Hypothyroidism, unspecified; E78.5 Hyperlipidemia, unspecified
CPT/HCPCS: 36415; 80053; 80061; 83695; 84439; 84443; 84481; 85025; 86376

== ENCOUNTER → 2024-11-09 14:15 | Outpatient (CLI) | payer OTHER, SELFPAY ==
--- NOTE | 2024-11-09 14:16 | DI.RAD.S_ITS ---
PROCEDURE: XR DEXA AXIAL SKELETON INDICATIONS: POST MENOPAUSAL SYNDROME COMPARISON: [facility], , DEXA AXIAL SKELETON, 08/10/2017, 15:06. FINDINGS: Lumbar Spine: Bone mineral density 0.944 (previously 1.157) g/cm2, T score -0.9 (previously -0.3). Left Femoral Neck: Bone mineral density 0.652 (previously 0.814) g/cm2, T score -1.8 (previously -1.6). Left Hip: Bone mineral density 0.724 (previously 0.820) g/cm2, T score -1.8 (previously -1.5). Fracture Risk Calculation (when applicable): 10-year fracture risk of a major osteoporotic fracture 17 percent and of a hip fracture 1.8 percent. (T score greater or equal to -1.0 to: NORMAL) (T score from -1.1 to -2.4: OSTEOPENIA) (T score less than or equal to -2.5: OSTEOPOROSIS) IMPRESSION: Osteopenia--- recommend repeat DEXA in 2-3 years for reassessment. Follow-up guidelines as follows: Osteoporosis: Consider a repeat DEXA and Vertebral Fracture Assessment (VFA) exam in 2 years or sooner if medically necessary, to reassess this patient's status. Osteopenia: Consider a repeat DEXA in 2-3 years to reassess this patient's status, or if there is a new clinical indication. Normal: Consider a repeat DEXA in 5 years or sooner, or if there is a new clinical indication. All treatment decisions require clinical judgment and consideration of individual patient factors, including patient preferences, comorbidities, previous drug use, risk factors not captured in the FRAX model (e.g., frailty, falls, vitamin D deficiency, increased bone turnover, interval significant decline in bone density ) and possible under- or over-estimation of fracture risk by FRAX. In addition, the NOF Guide recommends that FDA-approved medical therapies be considered in postmenopausal women and men age >= 50 years with a: * Hip or vertebral (clinical or morphometric) fracture * T-score of <=-2.5 at the spine or hip * Ten-year fracture probability by FRAX of >= 3% for hip fracture or >=20% for major osteoporotic fracture. Dictated by: Uriah Glover M.D. on 11/09/2024 at 19:17 Approved by: Uriah Glover M.D. on 11/09/2024 at 19:22
== END ==
LOC: RAD 14:15
PROVIDERS: PCP Family Medicine; Referring Provider Family Medicine; Visit Provider Family Medicine
DX: Z78.0 Asymptomatic menopausal state; M85.852 Other specified disorders of bone density and structure, left thigh
CPT/HCPCS: 77080

== ENCOUNTER → 2024-12-31 18:49 | Outpatient (CLI) | payer OTHER, SELFPAY ==
--- NOTE | 2024-12-31 18:52 | DI.MRI.S_ITS ---
PROCEDURE: MR KNEE LT WO CON INDICATIONS: Knee instability - left TECHNIQUE: Noncontrast sagittal PD fast spin echo and T2 fast spin echo with fat saturation, sagittal 3-D FLASH with fat saturation; coronal T1 spin echo and PD fast spin echo with fat saturation, and axial PD fast spin echo with fat saturation through the knee. COMPARISON: [facility], MR, KNEE WITHOUT CONTRAST, 06/26/2015, 18:23. FINDINGS: Image quality: Excellent. Menisci: There is mild ill-defined T2 signal elevation within the posterior horn medial meniscus, without articular surface extension, consistent with myxoid degeneration. Lateral meniscus is intact. Cruciate ligaments: There is high-grade tearing of the anterior cruciate ligament at the femoral insertion site. Redundancy of the anterior cruciate ligament. Posterior cruciate ligament is intact. Medial structures: The medial collateral ligament appears intact. Visualized portions of the pes anserinus tendons appear normal. No abnormal bursal fluid. Lateral structures: The lateral collateral ligament, long and short heads of the biceps femoris tendon appear intact. The popliteus tendon appears normal. Iliotibial band appears normal. Anterior structures: The quadriceps and patellar tendons appear intact. Patellar alignment is normal. No femoral trochlear dysplasia or ventral trochlear prominence. No edema in the infrapatellar fat pad. Bones and cartilage: No displaced fracture. Mild ill-defined STIR signal elevation within the posterior weight-bearing aspects of the medial and lateral tibial plateau. There is mild ill-defined STIR signal elevation within the patellar apex. High-grade articular cartilage loss overlies the patellar apex. Moderate articular cartilage loss overlies the medial facet. Articular cartilage fibrillation overlies the lateral patellar facet. Moderate articular cartilage loss overlies the weight-bearing aspects of the medial femoral condyle and medial tibial plateau. Joint space: There is a moderate knee joint effusion and a trace Rose's cyst. Normal appearing synovial plicae are incidentally noted. IMPRESSION: 1. High-grade anterior cruciate ligament tear. 2. Contusion versus degenerative marrow edema within the tibial plateau. 3. Osteoarthritis with medial and patellofemoral compartment articular cartilage loss. Dictated by: Carlie Salcido M.D. on 01/01/2025 at 7:09 Approved by: Carlie Salcido M.D. on 01/01/2025 at 7:12
== END ==
PROVIDERS: PCP Family Medicine; Referring Provider Family Medicine; Visit Provider Family Medicine
DX: S83.512A Sprain of anterior cruciate ligament of left knee, initial encounter (principal); M17.12 Unilateral primary osteoarthritis, left knee; M25.362 Other instability, left knee; X58.XXXA Exposure to other specified factors, initial encounter
CPT/HCPCS: 73721

== ENCOUNTER → 2025-01-15 11:52 | Outpatient (CLI) | payer OTHER, MEDICARE, SELFPAY ==
--- NOTE | 2025-01-15 11:58 | DI.RAD.S_ITS ---
PROCEDURE: XR TOE RT MIN 2V INDICATIONS: pain in big toe TECHNIQUE: 3 views of the 1st toe(s) acquired. COMPARISON: None. FINDINGS: Bones: No fractures or dislocations. No suspicious bony lesions. Soft tissues: No suspicious soft tissue densities. IMPRESSION: No acute bony abnormality. Dictated by: Uriah Glover M.D. on 01/16/2025 at 1:28 Approved by: Uriah Glover M.D. on 01/16/2025 at 1:32
== END ==
PROVIDERS: PCP Family Medicine; Referring Provider Family Medicine; Visit Provider Family Medicine
DX: M79.674 Pain in right toe(s) (principal)
CPT/HCPCS: 73660